=== PATIENT | male | born 1985 | race Caucasian/White ===

== ENCOUNTER 2019-07-27 13:02 | Emergency (ER) | payer OTHER ==
[~2019-07-27] VITALS: Ht 172.7 cm; Wt 56.7 kg
--- NOTE | 2019-07-27 13:05 | NUR ---
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 PATIENT A/OX4, BREATHING EVEN AND UNLABORED, NO SOB NOTED. VERBALLY RESPONSIVE. STILL C/O FEELING DEPRESSED. CHANGED INTO GOWN, BELONGINGS KEPT IN SAFE PLACE.
--- NOTE | 2019-07-27 13:11 | NUR ---
WANDED BY SECURITY
--- NOTE | 2019-07-27 13:29 | NUR ---
CALLED [facility]ISON [facility]OL AND SPOKE WITH KAREL, RECOMMENDED NO CHARCOAL, MONITOR FOR FOUR HOURS FOR GI SYMPTOMS, LABS SUCH ASA AND TYLENOL LEVEL WITH CMP NOW AND IN 4 HOURS REPEAT BMP. 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
[2019-07-27 13:51] LABS: BASOPHILS # (AUTO) 0.1 /CMM (0.0-0.2); BASOPHILS % (AUTO) 1.9 % (0.0-2.0); EOSINOPHILS % (AUTO) 3.8 % (0.0-6.0); HEMATOCRIT 47 % (39-51); HEMOGLOBIN 16.1 g/dL (13.5-17.5); LYMPHOCYTES # (AUTO) 0.7 /CMM (0.8-4.8); MEAN CORPUSCULAR HGB CONC 34 g/dl (31.0-36.0); MEAN CORPUSCULAR VOLUME 91 fL (80-96); MONOCYTES # (AUTO) 0.4 /CMM (0.1-1.30); MONOCYTES % (AUTO) 10.8 % (2.0-12.0); NEUTROPHILS # (AUTO) 2.2 /CMM (1.8-8.9); NEUTROPHILS % (AUTO) 62.5 % (43.0-81.0); PLATELET COUNT (AUTO) 202 /CMM (150-450); RED BLOOD CELL COUNT(AUTO) 5.23 MIL/uL (4.5-6.0); WHITE BLOOD COUNT (AUTO) 3.5 K/uL (4.3-11.0)
[2019-07-27] MEDS ORDERED: IV NS 0.9% 1,000 ML BAG IV ONE (14:00)
[2019-07-27 14:06] LABS: ALANINE AMINOTRANSFERASE 19 U/L (12-78); ALBUMIN 4.5 g/dL (3.4-5.0); ALCOHOL, BLOOD < 3 mg/dL (0-0); ALKALINE PHOSPHATASE 73 U/L (46-116); ASPARTATE AMINOTRANSFERASE 14 U/L (15-37); BILIRUBIN,DIRECT 0.1 mg/dL (0.0-0.2); BILIRUBIN,TOTAL 0.6 mg/dL (0.2-1.0); CALCIUM, SERUM 9.7 mg/dL (8.5-10.1); CREATININE 1.2 mg/dL (0.6-1.3); GLUCOSE 115 mg/dL (74-106); TOTAL PROTEIN, SERUM 6.7 g/dL (6.4-8.2); UREA NITROGEN, BLOOD 8 mg/dL (7-18)
[2019-07-27 14:23] LABS: APPEARANCE,URINE Clear (CLEAR); BILIRUBIN,URINE Negative (NEGATIVE); BLOOD, URINE Negative Ery/uL (NEGATIVE); COLOR,URINE Yellow (YELLOW); KETONES,URINE Negative (NEGATIVE); LEUKOCYTE ESTERASE ,URINE Negative (NEGATIVE); NITRITE, URINE Negative (NEGATIVE); PROTEIN,URINE Negative (NEGATIVE); UGLUCOSE Negative (NEGATIVE); UROBILINOGEN,URINE 0.2 EU/dL (0.2)
[2019-07-27 14:32] LABS: CARBON DIOXIDE 25 mmol/L (21-32); CHLORIDE 105 mmol/L (98-107); POTASSIUM 3.9 mmol/L (3.5-5.1); SODIUM SERUM 140 mmol/L (136-145)
[2019-07-27 14:35] LABS: ACETAMINOPHEN 0 ug/ml (10-30); SALICYLATE < 2.8 mg/dL (2.8-20.0)
--- NOTE | 2019-07-27 15:55 | NUR ---
arsen rn at bedside for eval. PATIENT RESTING, NO DISTRESS NOTED.
--- NOTE | 2019-07-27 16:35 | NUR ---
REPEAT BMP AT 1730H.
--- NOTE | 2019-07-27 17:40 | NUR ---
ER PHLEB AT BEDSIDE FOR BLOOD DRAW.
[2019-07-27 17:57] LABS: CALCIUM, SERUM 8.9 mg/dL (8.5-10.1)
[2019-07-27 18:24] VITALS: BP 128/81
--- NOTE | 2019-07-27 18:24 | NUR ---
IV removed. Catheter intact and site benign. Pressure and 4x4 applied to site. No bleeding noted. Patient discharged to home in stable condition. Written and verbal after care instructions given. Patient verbalizes understanding of instruction.
== END 2019-07-27 18:28 | disposition home or self-care (01) ==
LOC: ER 13:03
DX: T39.312A Poisoning by propionic acid derivatives, intentional self-harm, initial encounter (principal); R11.10 Vomiting, unspecified; D72.819 Decreased white blood cell count, unspecified; F32.9 Major depressive disorder, single episode, unspecified; Y92.89 Other specified places as the place of occurrence of the external cause
CPT/HCPCS: 36415; 80048 ×2; 80076; 80305; 80307; 80329; 81001; 85025; 96360; 99285; G0480; J7030; 81000-TC